=== PATIENT | male | born 1975 | race Caucasian/White ===

== ENCOUNTER 2024-04-26 07:45 | Day surgery (SDC) | payer MEDICAID ==
[~2024-04-26] VITALS: Ht 167.6 cm; Wt 89.8 kg
[~2024-04-26 07:45] MED LIST: LIDOCAINE/PF 2% 5 ML VIAL ONE; PROPOFOL 1% 20 ML VIAL IVP ONE; SODIUM CHLORIDE 0.9% 1,000 ML ONE
[2024-04-26] MEDS: SODIUM CHLORIDE 0.9% 1,000 ML IV ONE (08:43)
== END 2024-04-26 11:35 | disposition home or self-care (01) ==
LOC: SURGERY 07:45
PROVIDERS: ATTEND Internal Medicine Gastroenterology
DX: K57.30 Diverticulosis of large intestine without perforation or abscess without bleeding (principal); E66.9 Obesity, unspecified; D64.9 Anemia, unspecified; K64.8 Other hemorrhoids; Z72.89 Other problems related to lifestyle; Z79.899 Other long term (current) drug therapy; Z68.31 Body mass index [BMI] 31.0-31.9, adult
CPT/HCPCS: 45378; J2704; J3490; J7030